=== PATIENT | male | born 1945 | race Caucasian/White ===

== ENCOUNTER 2024-08-23 07:06 | Inpatient (IN) | payer MEDICARE ==
[~2024-08-23] VITALS: Ht 185.4 cm; Wt 95.3 kg
[2024-08-23] MEDS ORDERED: IOHEXOL-350 100 ML VIAL IV ONE (07:15)
[2024-08-23 07:37] LABS: BASOPHILS # (AUTO) 0.1 K/uL (0.0-0.2); BASOPHILS % (AUTO) 0.8 % (0.0-2.0); EOSINOPHILS # (AUTO) 0.2 K/uL (0.0-0.7); EOSINOPHILS % (AUTO) 2.8 % (0.0-6.0); HEMATOCRIT 46 % (39-51); HEMOGLOBIN 15.2 g/dL (13.5-17.5); LYMPHOCYTES # (AUTO) 1.7 K/uL (0.8-4.8); LYMPHOCYTES % (AUTO) 24.7 % (20.0-44.0); MEAN CORPUSCULAR HEMOGLOBIN 31 PG (26.0-33.0); MEAN CORPUSCULAR HGB CONC 33 g/dl (31.0-36.0); MEAN CORPUSCULAR VOLUME 92 fL (80-96); MONOCYTES # (AUTO) 0.7 K/uL (0.1-1.30); MONOCYTES % (AUTO) 9.6 % (2.0-12.0); NEUTROPHILS # (AUTO) 4.4 K/uL (1.8-8.9); NEUTROPHILS % (AUTO) 62.1 % (43.0-81.0); PLATELET COUNT (AUTO) 188 K/uL (150-450); RED BLOOD CELL COUNT(AUTO) 4.96 MIL/uL (4.5-6.0); RED CELL DISTRIBUTION WIDTH 14.1 % (11.5-15.0)
[2024-08-23 07:52] LABS: CARBON DIOXIDE 29 mmol/L (21-32); CHLORIDE 102 mmol/L (98-107); CREATININE 1.2 mg/dL (0.6-1.3); GLUCOSE 108 mg/dL (74-106); POTASSIUM 3.6 mmol/L (3.5-5.1); SODIUM SERUM 137 mmol/L (136-145); UREA NITROGEN, BLOOD 23 mg/dL (7-18)
[2024-08-23 07:54] LABS: ALANINE AMINOTRANSFERASE 37 U/L (12-78); ALBUMIN 3.7 g/dL (3.4-5.0); ALKALINE PHOSPHATASE 79 U/L (46-116); ASPARTATE AMINOTRANSFERASE 25 U/L (15-37); BILIRUBIN,DIRECT 0.2 mg/dL (0.0-0.2); BILIRUBIN,TOTAL 0.8 mg/dL (0.2-1.0); CALCIUM, SERUM 9.1 mg/dL (8.5-10.1); TOTAL PROTEIN, SERUM 7.2 g/dL (6.4-8.2)
[2024-08-23 07:57] LABS: INR 1.01 (0.91-1.10); PARTIAL THROMBOPLASTIN TIME 27.7 SEC (24.3-34.3); PROTHROMBIN TIME 10.7 SECS (9.2-11.1)
[2024-08-23 09:10] LABS: APPEARANCE,URINE CLEAR (CLEAR); BILIRUBIN,URINE NEGATIVE (NEGATIVE); BLOOD, URINE 1+ Ery/uL (NEGATIVE); COLOR,URINE YELLOW (YELLOW); KETONES,URINE NEGATIVE (NEGATIVE); LEUKOCYTE ESTERASE ,URINE NEGATIVE (NEGATIVE); NITRITE, URINE NEGATIVE (NEGATIVE); PH,URINE 7.5 (5.0-8.0); PROTEIN,URINE NEGATIVE (NEGATIVE); UGLUCOSE NEGATIVE (NEGATIVE); UROBILINOGEN,URINE 0.2 EU/dL (0.2)
[2024-08-23] MEDS ORDERED: APIX2.5T PO (09:19)
[2024-08-23] MEDS ORDERED: SILO8CAP2 PO (09:19)
[2024-08-23] MEDS ORDERED: ROSU5TAB PO (09:19)
[2024-08-23] MEDS ORDERED: ASPIRIN PO (09:19)
[2024-08-23] MEDS ORDERED: AMLO5TAB4 PO (09:19)
[2024-08-23] MEDS ORDERED: LOSA1TAB36 PO (09:19)
[2024-08-23] MEDS ORDERED: ALLO300T2 PO (09:19)
[2024-08-23 09:21] LABS: ADD URINE CULTURE NO; BACTERIA,URINE Rare /HPF (None Seen); SQUAMOUS EPITHELIAL CELL,UR None Seen /HPF (None Seen); WBC,URINE 0-2 /HPF (0-3)
[2024-08-23] MEDS: ASPIRIN 325 MG TABLET PO ONE (09:34)
[2024-08-23] MEDS ORDERED: RAPAFLO 8 MG XX SCH (10:00)
[2024-08-23] MEDS ORDERED: ENOXAPARIN SODIUM 40 MG/0.4 ML DISP.SYRIN SQ SCH (10:00)
[2024-08-23] MEDS: LOSARTAN POTASSIUM 50 MG TABLET PO SCH (12:56)
[2024-08-23] MEDS: HYDROCHLOROTHIAZIDE 25 MG TABLET PO SCH (12:57)
[2024-08-23 16:15] VITALS: BP 120/70; TEMP 97.5; O2SAT 96
[2024-08-23] MEDS ORDERED: APIXABAN 2.5 MG TABLET PO SCH (17:00)
[2024-08-23 20:00] VITALS: BP 131/81; TEMP 97.7; O2SAT 97
[2024-08-23] MEDS ORDERED: SIMVASTATIN 20 MG TABLET PO SCH (22:00)
[2024-08-24] VITALS: BP 151/84; TEMP 97.9; O2SAT 96
[2024-08-24 04:00] VITALS: BP 151/95; TEMP 97.8; O2SAT 98
[2024-08-24 05:01] VITALS: BP 151/95; TEMP 97.8; O2SAT 98
[2024-08-24 07:11] LABS: INR 1.02 (0.91-1.10); PARTIAL THROMBOPLASTIN TIME 26.6 SEC (24.3-34.3); PROTHROMBIN TIME 10.8 SECS (9.2-11.1)
[2024-08-24 07:14] LABS: BASOPHILS % (AUTO) 0.5 % (0.0-2.0); EOSINOPHILS # (AUTO) 0.1 K/uL (0.0-0.7); EOSINOPHILS % (AUTO) 2.3 % (0.0-6.0); HEMATOCRIT 48 % (39-51); LYMPHOCYTES # (AUTO) 1.2 K/uL (0.8-4.8); LYMPHOCYTES % (AUTO) 19.5 % (20.0-44.0); MEAN CORPUSCULAR HEMOGLOBIN 31 PG (26.0-33.0); MEAN CORPUSCULAR HGB CONC 34 g/dl (31.0-36.0); MEAN CORPUSCULAR VOLUME 92 fL (80-96); MONOCYTES # (AUTO) 0.5 K/uL (0.1-1.30); MONOCYTES % (AUTO) 7.6 % (2.0-12.0); NEUTROPHILS # (AUTO) 4.3 K/uL (1.8-8.9); NEUTROPHILS % (AUTO) 70.1 % (43.0-81.0); PLATELET COUNT (AUTO) 174 K/uL (150-450); RED BLOOD CELL COUNT(AUTO) 5.17 MIL/uL (4.5-6.0); RED CELL DISTRIBUTION WIDTH 14.2 % (11.5-15.0); WHITE BLOOD COUNT (AUTO) 6.1 K/uL (4.3-11.0)
[2024-08-24 07:23] LABS: CALCIUM, SERUM 8.9 mg/dL (8.5-10.1); POTASSIUM 4.1 mmol/L (3.5-5.1)
[2024-08-24 08:00] VITALS: BP 114/75; TEMP 97.5; O2SAT 98
[2024-08-24] MEDS: DOCUSATE SODIUM 100 MG CAPSULE PO SCH (08:41)
[2024-08-24] MEDS: ASPIRIN 325 MG TABLET PO SCH (08:41)
[2024-08-24] MEDS: AMLODIPINE BESYLATE 5 MG TABLET PO SCH (08:42)
[2024-08-24] MEDS: ALLOPURINOL 100 MG TABLET PO SCH (08:43)
[2024-08-24] MEDS: PANTOPRAZOLE 40 MG TABLET.DR PO SCH (08:43)
[2024-08-24] MEDS ORDERED: ASPIRIN 81 MG TAB.CHEW PO SCH (09:00)
[2024-08-24] MEDS ORDERED: LOSARTAN/HCTZ 50-12.5MG/ 1 EA TABLET PO SCH (09:00)
[2024-08-24 12:00] VITALS: BP 137/78; TEMP 97.3; O2SAT 96
[2024-08-24] MEDS ORDERED: ATORVASTATIN 10 MG TABLET PO SCH (12:00)
[2024-08-24 20:00] VITALS: BP 130/86; TEMP 98.2; O2SAT 100
[2024-08-24] MEDS: ATORVASTATIN 10 MG TABLET PO SCH (21:36)
[2024-08-25] VITALS (28 sets, daily range): BP systolic 101–186; BP diastolic 66–116; TEMP 97–98.6; O2SAT 95–99
[2024-08-25] MEDS: IV NS 0.9% 1,000 ML IV SCH (05:24)
[2024-08-25] MEDS ORDERED: POLYMYXIN B SULFATE 500,000 UNITS ONE (06:22)
[2024-08-25] MEDS ORDERED: ANESTHESIA TRAY IN PYXIS 1 EA TRAY MC ONE (06:23)
[2024-08-25] MEDS ORDERED: BUPIVACAINE 0.25% 75 MG/30 ML VIAL ONE ×2 (06:23→10:26)
[2024-08-25 06:49] LABS: BASOPHILS % (AUTO) 0.4 % (0.0-2.0); EOSINOPHILS # (AUTO) 0.1 K/uL (0.0-0.7); EOSINOPHILS % (AUTO) 2.3 % (0.0-6.0); HEMATOCRIT 47 % (39-51); HEMOGLOBIN 15.8 g/dL (13.5-17.5); LYMPHOCYTES # (AUTO) 1.2 K/uL (0.8-4.8); MEAN CORPUSCULAR HEMOGLOBIN 31 PG (26.0-33.0); MEAN CORPUSCULAR HGB CONC 34 g/dl (31.0-36.0); MEAN CORPUSCULAR VOLUME 92 fL (80-96); MONOCYTES # (AUTO) 0.5 K/uL (0.1-1.30); MONOCYTES % (AUTO) 8.1 % (2.0-12.0); NEUTROPHILS # (AUTO) 4.6 K/uL (1.8-8.9); NEUTROPHILS % (AUTO) 70.2 % (43.0-81.0); PLATELET COUNT (AUTO) 170 K/uL (150-450); RED BLOOD CELL COUNT(AUTO) 5.08 MIL/uL (4.5-6.0); RED CELL DISTRIBUTION WIDTH 14.2 % (11.5-15.0); WHITE BLOOD COUNT (AUTO) 6.6 K/uL (4.3-11.0)
[2024-08-25 07:03] LABS: INR 0.98 (0.91-1.10); PROTHROMBIN TIME 10.4 SECS (9.2-11.1)
[2024-08-25 07:11] LABS: CALCIUM, SERUM 8.9 mg/dL (8.5-10.1); POTASSIUM 3.9 mmol/L (3.5-5.1)
[2024-08-25] MEDS ORDERED: LIDOCAINE HCL/MPF 1% 30 ML VIAL IJ ONE (10:23)
[2024-08-25] MEDS ORDERED: CELLULOSE,OXIDIZED 1 EACH EACH MC ONE (10:24)
[2024-08-25] MEDS ORDERED: LIDOCAINE 1% INJ 50 ML MDV IJ ONE (10:24)
[2024-08-25] MEDS ORDERED: CELLULOSE,OXIDIZED 1 EA PACK MC ONE (10:24)
[2024-08-25] MEDS ORDERED: ROPIVACAINE HCL 0.5% 5 MG/ML 30ML VIAL ONE (10:25)
[2024-08-25] MEDS ORDERED: HEMOSTATIC MATRIX 8 ML 1 EACH PAD MC ONE (10:51)
[2024-08-25] MEDS ORDERED: FENTANYL PF 250MCG/5ML AMPUL ONE (12:26)
[2024-08-25] MEDS ORDERED: ROCURONIUM BROMIDE 50 MG/5 ML ONE (12:26)
[2024-08-25] MEDS ORDERED: NTG 50 MG/D5W250 ML BOTTL 250 ML IV PRN (13:00)
[2024-08-25] MEDS ORDERED: PHENYLEPHRINE 10 MG/ML VIAL ONE (13:30)
[2024-08-25] MEDS ORDERED: HEPARIN SODIUM, PORCINE 5000 UNITS/1 ML VIAL ONE (14:08)
[2024-08-25] MEDS ORDERED: CEFAZOLIN 1 GM ONE (15:26)
[2024-08-25] MEDS ORDERED: BENZONATATE 100 MG CAPSULE PO PRN (17:00)
[2024-08-25] MEDS ORDERED: ONDANSETRON HCL/PF 4 MG/2 ML VIAL IVP PRN (17:00)
[2024-08-25] MEDS ORDERED: HYDROCODONE/APAP 5/325MG TABLET PO PRN (17:00)
[2024-08-25] MEDS ORDERED: ACETAMINOPHEN 325 MG TABLET PO PRN (17:00)
[2024-08-25] MEDS ORDERED: ANCEF 1 GM/50 ML D5W IV SCH (17:00)
[2024-08-25 17:09] LABS: BASOPHILS % (AUTO) 0.3 % (0.0-2.0); EOSINOPHILS # (AUTO) 0.1 K/uL (0.0-0.7); EOSINOPHILS % (AUTO) 0.7 % (0.0-6.0); HEMATOCRIT 49 % (39-51); HEMOGLOBIN 15.1 g/dL (13.5-17.5); LYMPHOCYTES # (AUTO) 0.8 K/uL (0.8-4.8); LYMPHOCYTES % (AUTO) 8.7 % (20.0-44.0); MEAN CORPUSCULAR HEMOGLOBIN 31 PG (26.0-33.0); MEAN CORPUSCULAR HGB CONC 31 g/dl (31.0-36.0); MEAN CORPUSCULAR VOLUME 100 fL (80-96); MONOCYTES # (AUTO) 0.6 K/uL (0.1-1.30); MONOCYTES % (AUTO) 5.9 % (2.0-12.0); NEUTROPHILS # (AUTO) 8.2 K/uL (1.8-8.9); NEUTROPHILS % (AUTO) 84.4 % (43.0-81.0); PLATELET COUNT (AUTO) 161 K/uL (150-450); RED BLOOD CELL COUNT(AUTO) 4.87 MIL/uL (4.5-6.0); RED CELL DISTRIBUTION WIDTH 15.6 % (11.5-15.0); WHITE BLOOD COUNT (AUTO) 9.7 K/uL (4.3-11.0)
[2024-08-25 17:24] LABS: MAGNESIUM 1.9 mg/dL (1.8-2.4); POTASSIUM 3.9 mmol/L (3.5-5.1)
[2024-08-25] MEDS: MENTHOL/CETYLPYRD (CEPACOL) 1 LOZ LOZENGE PO PRN (19:32)
[2024-08-25] MEDS: ANCEF 1 GM/50 ML D5W IV SCH (21:14)
[2024-08-25] MEDS: ATORVASTATIN 10 MG TABLET PO SCH (21:14)
[2024-08-26] VITALS (19 sets, daily range): BP systolic 110–171; BP diastolic 60–105; TEMP 97.8–98.1; O2SAT 93–99
[2024-08-26 04:42] LABS: BASOPHILS % (AUTO) 0.3 % (0.0-2.0); EOSINOPHILS % (AUTO) 0.1 % (0.0-6.0); HEMATOCRIT 41 % (39-51); HEMOGLOBIN 13.4 g/dL (13.5-17.5); LYMPHOCYTES # (AUTO) 0.6 K/uL (0.8-4.8); LYMPHOCYTES % (AUTO) 5.8 % (20.0-44.0); MEAN CORPUSCULAR HEMOGLOBIN 31 PG (26.0-33.0); MEAN CORPUSCULAR HGB CONC 33 g/dl (31.0-36.0); MEAN CORPUSCULAR VOLUME 92 fL (80-96); MONOCYTES # (AUTO) 0.8 K/uL (0.1-1.30); MONOCYTES % (AUTO) 7.3 % (2.0-12.0); NEUTROPHILS # (AUTO) 9.3 K/uL (1.8-8.9); NEUTROPHILS % (AUTO) 86.5 % (43.0-81.0); PLATELET COUNT (AUTO) 183 K/uL (150-450); RED BLOOD CELL COUNT(AUTO) 4.39 MIL/uL (4.5-6.0); RED CELL DISTRIBUTION WIDTH 13.9 % (11.5-15.0); WHITE BLOOD COUNT (AUTO) 10.7 K/uL (4.3-11.0)
[2024-08-26 04:49] LABS: CALCIUM, SERUM 7.7 mg/dL (8.5-10.1); MAGNESIUM 1.7 mg/dL (1.8-2.4); POTASSIUM 4.2 mmol/L (3.5-5.1)
[2024-08-26] MEDS: MAGNESIUM OXIDE 400 MG TABLET PO ONE (10:16)
[2024-08-26] MEDS ORDERED: AMLO2.5T2 PO (10:53)
[2024-08-26] MEDS: AMLODIPINE BESYLATE 2.5 MG TABLET PO SCH (11:30)
== END 2024-08-26 18:05 | disposition home health service (06) | DRG 27 ==
LOC: ER 07:20 → TELE 09:34 → ICU 08-25 17:42
PROVIDERS: ADMIT Nurse Practitioner Acute Care; ATTEND Nurse Practitioner Acute Care
PROC: 03CL3ZZ Extirpation of Matter from Left Internal Carotid Artery, Percutaneous Approach (ICD-10-PCS; principal; 2024-08-25)
PROC: 03UL3JZ Supplement Left Internal Carotid Artery with Synthetic Substitute, Percutaneous Approach (ICD-10-PCS; 2024-08-25)
DX: I65.23 Occlusion and stenosis of bilateral carotid arteries (principal); I10 Essential (primary) hypertension; E78.5 Hyperlipidemia, unspecified; R29.701 NIHSS score 1; M10.9 Gout, unspecified; N40.0 Benign prostatic hyperplasia without lower urinary tract symptoms; E66.9 Obesity, unspecified; Z68.31 Body mass index [BMI] 31.0-31.9, adult; Z86.73 Personal history of transient ischemic attack (TIA), and cerebral infarction without residual deficits; Z79.01 Long term (current) use of anticoagulants; Z79.82 Long term (current) use of aspirin; Z79.899 Other long term (current) drug therapy; R79.89 Other specified abnormal findings of blood chemistry; S91.309A Unspecified open wound, unspecified foot, initial encounter; X58.XXXA Exposure to other specified factors, initial encounter; Y92.9 Unspecified place or not applicable
CPT/HCPCS: 36415; 70450-TC; 70496-TC; 70498-TC; 70544-TC; 70547-TC; 80048-TC; 80061-TC; 80076-TC; 81001; 83735-TC; 84443-TC; 85025-TC; 85652-TC; 85730-TC; 86850-TC; 92526; 92611-TC; 93307-TC; 93880-TC; 97110-TC; 97116-TC; 97164; 97530-TC; 97535-TC; A4223; A6253; A6403; G0378; J0690; J1644; J2704; J2795; J3010; J3490; J7030; J7050; J7060; Q9967